=== PATIENT | male | born 1945 | race Asian ===

== ENCOUNTER 2022-05-23 07:26 | Outpatient (REF) | payer OTHER, SELFPAY ==
[2022-05-23 11:29] LABS: MANUAL DIFF FLAG NO
[2022-05-23 11:30] LABS: Appearance Urine CLEAR; Color Urine YELLOW; Glucose Urine UA NEG (NEG); Leukocyte Esterase Urine NEG (NEG); Nitrite Urine NEG (NEG); Specific Gravity - Urine >= 1.030 (1.005-1.025); Urine Blood NEG (NEG); Urine Ketones NEG (NEG); Urine Protein NEG (NEG-TRACE)
[2022-05-23 11:44] LABS: Basophils Percent Auto 0.3 % (0-2); Eosinophils Absolute Auto 0.1 X10*3/uL (0.0-0.4); Eosinophils Percent Auto 1.1 % (0-4); Hematocrit 43.9 % (42.0-52.0); Hemoglobin 14.1 g/dl (14.0-18.0); Imm Gran Abs Auto 0.02 X10*3/uL (0.00-0.03); Imm Gran Pct Auto 0.3 % (0.0-0.4); Lymphocytes Absolute Auto 1.5 X10*3/uL (1.2-4.9); Lymphocytes Percent Auto 22.8 % (20-40); Mean Corpuscular HGB Conc 32.1 g/dl (31.0-36.0); Mean Corpuscular Volume 93.4 fL (80.0-98.0); Monocytes Absolute Auto 0.5 X10*3/uL (0.1-1.2); Monocytes Percent Auto 7.5 % (2-11); Neutrophils Absolute Auto 4.4 x10*3/uL (2.0-8.3); Platelet Count 123 X10*3/uL (160-400); Red Cell Distribution Width 12.8 % (11.0-16.0); White Blood Count 6.5 X10*3/uL (4.8-10.8)
[2022-05-23 11:55] LABS: Alanine Aminotransferase 27 U/L (0-40); Albumin Level 4.3 g/dL (3.5-5.0); Alkaline Phosphatase 62 U/L (39-117); Anion Gap 12 (12-20); Aspartate Amino Transferase 45 U/L (5-37); Bilirubin Total 0.9 mg/dL (0.0-1.0); Blood Urea Nitrogen 22 mg/dL (9-16); Calcium 9.2 mg/dL (8.4-10.2); Carbon Dioxide 27 mmol/L (22-29); Chloride 103 mmol/L (96-108); Cholesterol 98 mg/dL; Estimated Glomerular Filt Rate > 60; Glucose Fasting 111 mg/dL (60-99); HDL Cholesterol 42 mg/dL; LDL Cholesterol Calculated 35 mg/dl; Potassium 4.4 mmol/L (3.3-5.1); Sodium 138 mmol/L (135-145); Total Protein 7.3 g/dL (6.5-8.0); Triglycerides 106 mg/dL
[2022-05-23 12:03] LABS: Estimated Average Glucose 137 mg/dL; Hemoglobin A1c % 6.4 %
[2022-05-23 12:22] LABS: Prostate Specific Antigen Scr 2.23 ng/mL (<0.05-4.0); TSH reflex Free T4 0.29 uIU/mL (0.32-4.0)
[2022-05-23 13:09] LABS: Creatinine Urine 122.38 mg/dL; Microalbum/Creatinine Ratio Ur 22.8 ug/mg cr
[2022-05-23 14:05] LABS: Free T4 (Free Thyroxine) 1.15 ng/dL (0.71-1.85)
== END 2022-05-23 07:27 | disposition home or self-care (01) ==
LOC: HO.HMGCLDS 07:26
PROVIDERS: Visit Provider Nurse Practitioner Family
DX: Z00.00 Encounter for general adult medical examination without abnormal findings (principal); E11.9 Type 2 diabetes mellitus without complications; R74.8 Abnormal levels of other serum enzymes; Z12.5 Encounter for screening for malignant neoplasm of prostate
CPT/HCPCS: 36415; 80053; 80061; 81003; 82043; 83036; 84153; 84439; 84443; 85025

== ENCOUNTER 2022-06-13 08:55 | Outpatient (REF) | payer OTHER, SELFPAY ==
[2022-06-13 11:10] LABS: MANUAL DIFF FLAG NO
[2022-06-13 11:45] LABS: Basophils Percent Auto 0.3 % (0-2); Eosinophils Absolute Auto 0.1 X10*3/uL (0.0-0.4); Hematocrit 45.3 % (42.0-52.0); Hemoglobin 14.5 g/dl (14.0-18.0); Imm Gran Abs Auto 0.01 X10*3/uL (0.00-0.03); Imm Gran Pct Auto 0.2 % (0.0-0.4); Lymphocytes Absolute Auto 1.4 X10*3/uL (1.2-4.9); Lymphocytes Percent Auto 22.2 % (20-40); Mean Corpuscular Hemoglobin 29.7 pg (27.0-33.0); Mean Corpuscular Volume 92.8 fL (80.0-98.0); Mean Platelet Volume 11.1 fL (9.4-12.4); Monocytes Absolute Auto 0.6 X10*3/uL (0.1-1.2); Monocytes Percent Auto 9.3 % (2-11); Neutrophils Absolute Auto 4.2 x10*3/uL (2.0-8.3); Platelet Count 130 X10*3/uL (160-400); Red Blood Count 4.88 X10*6/uL (4.60-5.80); Red Cell Distribution Width 13.2 % (11.0-16.0); White Blood Count 6.2 X10*3/uL (4.8-10.8)
[2022-06-13 11:56] LABS: HBS Num1 200.09 mIU/mL (0-7.99); HBc Num1 1.27 S/CO (0.00-0.79); HBsAGNum1 0.21 S/CO (0.00-0.99); Hepatitis A Antibody IgM 0.18 Index (0-0.79); Hepatitis B Surface Antigen Negative (Negative); ~Hepatitis A Antibody IgM Nonreactive (Nonreactive); ~Hepatitis B Surface Antibody REACTIVE (Nonreactive); ~Hepatitis C Antibody Nonreactive (Nonreactive)
[2022-06-13 11:58] LABS: TSH reflex Free T4 0.32 uIU/mL (0.32-4.0)
[2022-06-13 13:57] LABS: HBc Num3 1.31 S/CO; Hepatitis B Core Antibody Reactive (Nonreactive)
== END 2022-06-13 08:56 | disposition home or self-care (01) ==
LOC: HO.HMGCLDS 08:55
PROVIDERS: PCP Nurse Practitioner Family; Visit Provider Nurse Practitioner Family
DX: D69.6 Thrombocytopenia, unspecified (principal); R79.89 Other specified abnormal findings of blood chemistry; R74.8 Abnormal levels of other serum enzymes
CPT/HCPCS: 36415; 84443; 85025; 86704; 86706; 86709; 86803; 87340

== ENCOUNTER → 2022-07-20 08:28 | Outpatient (BNVA) | payer OTHER, SELFPAY | PROVIDERS: PCP Nurse Practitioner Family; Referring Provider Nurse Practitioner Family; Visit Provider Nurse Practitioner | DX: Z01.818 Encounter for other preprocedural examination (principal) | CPT/HCPCS: 99202 ==

== ENCOUNTER 2022-09-05 10:36 | Outpatient (REF) | payer OTHER, SELFPAY ==
[2022-09-05 13:51] LABS: MANUAL DIFF FLAG NO
[2022-09-05 13:58] LABS: Appearance Urine Clear; Color Urine Yellow; Glucose Urine UA Negative (Negative); Leukocyte Esterase Urine Negative (Negative); Nitrite Urine Negative (Negative); PH 5.5 (5.0-9.0); Specific Gravity - Urine 1.015 (1.005-1.025); Urine Blood Negative (Negative); Urine Ketones Negative (Negative); Urine Protein Negative (Neg-Trace)
[2022-09-05 13:59] LABS: Basophils Percent Auto 0.5 % (0-2); Eosinophils Absolute Auto 0.1 X10*3/uL (0.0-0.4); Eosinophils Percent Auto 0.9 % (0-4); Hematocrit 44.7 % (42.0-52.0); Hemoglobin 14.7 g/dl (14.0-18.0); Imm Gran Abs Auto 0.01 X10*3/uL (0.00-0.03); Imm Gran Pct Auto 0.2 % (0.0-0.4); Lymphocytes Absolute Auto 1.5 X10*3/uL (1.2-4.9); Lymphocytes Percent Auto 26.5 % (20-40); Mean Corpuscular HGB Conc 32.9 g/dl (31.0-36.0); Mean Corpuscular Hemoglobin 30.1 pg (27.0-33.0); Mean Corpuscular Volume 91.6 fL (80.0-98.0); Mean Platelet Volume 11.1 fL (9.4-12.4); Monocytes Absolute Auto 0.4 X10*3/uL (0.1-1.2); Monocytes Percent Auto 6.9 % (2-11); Neutrophils Absolute Auto 3.7 x10*3/uL (2.0-8.3); Platelet Count 126 X10*3/uL (160-400); Red Blood Count 4.88 X10*6/uL (4.60-5.80); Red Cell Distribution Width 13.1 % (11.0-16.0); White Blood Count 5.7 X10*3/uL (4.8-10.8)
[2022-09-05 14:08] LABS: Estimated Average Glucose 151 mg/dL; Hemoglobin A1c % 6.9 %
[2022-09-05 14:24] LABS: Alanine Aminotransferase 44 U/L (0-40); Albumin Level 4.2 g/dL (3.5-5.0); Alkaline Phosphatase 60 U/L (39-117); Anion Gap 18 (12-20); Aspartate Amino Transferase 29 U/L (5-37); Bilirubin Total 0.8 mg/dL (0.0-1.0); Blood Urea Nitrogen 15 mg/dL (9-16); Calcium 9.2 mg/dL (8.4-10.2); Carbon Dioxide 25 mmol/L (22-29); Chloride 101 mmol/L (96-108); Cholesterol 123 mg/dL; Estimated Glomerular Filt Rate > 60; Glucose Fasting 113 mg/dL (60-99); HDL Cholesterol 44 mg/dL; LDL Cholesterol Calculated 55 mg/dl; Potassium 4.5 mmol/L (3.3-5.1); Sodium 139 mmol/L (135-145); Total Protein 7.2 g/dL (6.5-8.0); Triglycerides 122 mg/dL
== END 2022-09-05 10:37 | disposition home or self-care (01) ==
LOC: HO.HMGCLDS 10:36
PROVIDERS: PCP Nurse Practitioner Family; Visit Provider Nurse Practitioner Family
DX: E11.9 Type 2 diabetes mellitus without complications (principal); I45.10 Unspecified right bundle-branch block; E78.5 Hyperlipidemia, unspecified
CPT/HCPCS: 36415; 80053; 80061; 81003; 83036; 84443; 85025

== ENCOUNTER 2022-09-13 10:02 | Outpatient (REF) | payer OTHER, SELFPAY ==
--- NOTE | ~2022-09-13 | US_ITS ---
EXAMINATION: US ABDOMEN COMPLETE CLINICAL INFORMATION: Elevated liver enzymes. COMPARISON: None TECHNIQUE: Real-time imaging of the abdominal viscera. FINDINGS: PANCREAS: Not well visualized due to bowel gas ABDOMINAL AORTA: The proximal abdominal aorta is not well visualized due to bowel gas. The mid and distal abdominal aorta are normal in caliber. INFERIOR VENA CAVA: Visualized portions are normal. LIVER: The liver is not well visualized. The liver is normal in size. The liver contour is normal. Parenchymal echogenicity is normal. No focal hepatic lesion. There is no intrahepatic biliary duct dilatation seen. GALLBLADDER: Surgically absent. COMMON BILE DUCT: Normal in caliber measuring 0.5 cm in diameter. RIGHT KIDNEY: There is a 6 mm stone in the mid to lower pole. No hydronephrosis or focal parenchymal lesions. The kidney measures 9.9 cm in maximum dimension. LEFT KIDNEY: There is a 7 x 4 x 3 mm stone in the midpole. There is a 1 cm cyst in the lower pole is slightly complex with septation. No hydronephrosis. The kidney measures 10.6 cm in maximum dimension. SPLEEN: Normal. The spleen measures 11.5 cm in maximum dimension. FREE FLUID: None. US/US abdomen complete IMPRESSION: Limited evaluation of the liver and pancreas. Bilateral renal stones. Small complex left renal cyst.
== END 2022-09-13 10:03 | disposition home or self-care (01) ==
LOC: HO.US 10:02
PROVIDERS: Visit Provider Nurse Practitioner Family
DX: R74.8 Abnormal levels of other serum enzymes (principal); I45.10 Unspecified right bundle-branch block
CPT/HCPCS: 76700

== ENCOUNTER 2022-10-25 10:57 | Day surgery (SDC) | payer OTHER, SELFPAY ==
[2022-10-22 14:19] VITALS: BMI 28.7
--- NOTE | 2022-10-24 12:20 | HO.ANESPROP2 ---
Documented by User: Lavinia Marcos NP 10/24/22 12:24 HPI - Anesthesia Eval Consult details Narrative: 76yo M for Colonoscopy PMFSH Active Problems Active Problems: All Active Problems (Updated 09/05/22 @ 10:28 by Lamin Granger, [facility]) Dyslipidemia (Acute) Pre-op examination (Acute) Elevated liver enzymes (Acute) Thrombocytopenia (Acute) Low TSH level (Acute) Screening PSA (prostate specific antigen) (Acute) Diabetes (Acute) Physical exam (Acute) RBBB (Acute) Screening for colon cancer (Acute) Past Medical History Medical History Diabetes Dyslipidemia Parkinsons Surgical History Surgical History History of appendectomy History of cholecystectomy Social History Social History Housing: House Patient Tobacco Use Status: Never used Tobacco e-Cigarette/Vaping Use: Never Used Second Hand Smoke Exposure: No Advance Directives: No Advance Directives Information Provided: Yes Current occupational status: retired Cognitive needs: No Hearing needs: No Vision needs: No Meds Allergies Allergy/AdvReac Type Severity Reaction Status Date / Time No Known Allergies Allergy Verified 09/05/22 10:58 Home Medications Medication Instructions Recorded Confirmed Last Taken Type atorvastatin 20 mg tablet 20 mg PO DAILY 05/16/22 09/05/22 Unknown History blood sugar diagnostic (OneTouch #10 ea 05/16/22 09/05/22 Unknown History Ultra Test strips) carbidopa 25 mg-levodopa 100 mg 2 tab PO TID 05/16/22 09/05/22 Unknown History tablet lancets 30 gauge (OneTouch Delica #100 ea 05/16/22 09/05/22 Unknown History Plus Lancet) lisinopril 2.5 mg tablet 2.5 mg PO DAILY 05/16/22 09/05/22 Unknown History Exam Exam Date and Time: October 24, 2022 1220 Height,Weight and Vital Signs: Height 6 ft Weight 96.162 kg Pertinent Lab Results Pertinent Lab Results: Laboratory Tests 09/05/22 09/05/22 10:42 10:42 WBC 5.7 Hgb 14.7 Hct 44.7 Plt Count 126 L Sodium 139 Potassium 4.5 Chloride 101 Carbon Dioxide 25 BUN 15 Creatinine 1.08 Assessment and Plan Assessment Anesthesia Assessment: Chart Reviewed Documented by User: Nanette Rene MD 10/25/22 12:28 [facility] Past Medical History Medical History Diabetes Dyslipidemia Parkinsons Surgical History Surgical History History of appendectomy History of cholecystectomy History of Problems with Anesthesia: No Social History Social History Housing: House Patient Tobacco Use Status: Never used Tobacco e-Cigarette/Vaping Use: Never Used Second Hand Smoke Exposure: No Advance Directives: No Advance Directives Information Provided: Yes Current occupational status: retired Cognitive needs: No Hearing needs: No Vision needs: No Meds Allergies Allergy/AdvReac Type Severity Reaction Status Date / Time No Known Allergies Allergy Verified 09/05/22 10:58 Home Medications Medication Instructions Recorded Confirmed Last Taken Type atorvastatin 20 mg tablet 20 mg PO DAILY 05/16/22 09/05/22 Unknown History blood sugar diagnostic (OneTouch #10 ea 05/16/22 09/05/22 Unknown History Ultra Test strips) carbidopa 25 mg-levodopa 100 mg 2 tab PO TID 05/16/22 09/05/22 Unknown History tablet lancets 30 gauge (OneTouch Delica #100 ea 05/16/22 09/05/22 Unknown History Plus Lancet) lisinopril 2.5 mg tablet 2.5 mg PO DAILY 05/16/22 09/05/22 Unknown History Exam Airway Mallampati Class: III TM Dist: >3cm Neck ROM: Full Denture: Upper and Lower Loose/Missing/Broken Teeth: Yes, Upper and Lower Heart: RRR Lungs: CTA Assessment and Plan Assessment Anesthesia Assessment: Anesthesia Plan Discussed Final Anesthetic Review History of Problems with Anesthesia: No ASA Class: III Final Preanesthetic Review: Meds/Allgs Chart Reviewed, Consent Obtained/Reviewed and Anes Risks/Benef Reviewed Patient Risk: Intermediate Procedure Risk: Low Anesthetic Plan Anesthetic Plan: MAC: Disposition: Standard PACU
--- NOTE | 2022-10-25 11:47 | P.HPSUR_ITS ---
Pre-Procedural Eval Section A Date of Service: 10/25/22 Section B Chief Complaint: screening Relevant Family History (Specify if Yes): No Relevant Social History: None Present Medications: see Short Stay Collaborative assessment Medical History: Significant History (Diabetes Dyslipidemia Parkinsons) History of Previous Operations: Relevant previous surgery/procedure and date(s) (History of appendectomy History of cholecystectomy) Allergies: Allergies Allergy/AdvReac Type Severity Reaction Status Date / Time No Known Allergies Allergy Verified 09/05/22 10:58 Review of Systems Sugical H&P ROS: Negative: Constitution, Cardiovascular, Respiratory, Neurolo gical, Psychiatric, Hem-Onc, Allergic/Immunologic, Gastrointestinal, Genitourinary, Musculoskeletal, Integumentary, Endocrine and Eyes/Ears/Nose/Throat Exam Surgical H&P Exam: Normal: HEENT, Normal: Heart, Normal: Lungs, Normal: Extremities, Normal: Abdomen, Normal: Skin and Normal: Neurological Plan Diagnosis/Plan: Unchanged I have reviewed the history and physical and performed a pertinent physical examination on my patient. No changes have occurred unless specified.
[2022-10-25 12:04] VITALS: BMI 26.2
[2022-10-25 12:24] LABS: Glucose, Whole Blood 117 mg/dL (60-115)
[2022-10-25 12:34] VITALS: BP 123/67; PULSE 87; RESP 18; TEMP 36.8; O2SAT 95
--- NOTE | 2022-10-25 13:24 | P.OP_ITS ---
Operative Note Operative Note Date of Service: 10/25/22 Narrative: Operative Information Procedure Description: Colonoscopy Indication: screening Anesthesia: MAC COLONOSCOPY Instrument: Olympus variable stiffness pediatric scope 190L the switched to adult scope due to looping, pressure applied Colonoscopy Monitoring: Vital signs and clinical assessment, continuous EKG monitoring, Pulse oximetry, Carbon Dioxide monitoring and blood pressure monitoring were done throughout the procedure. Colon withdrawal time was 26 minutes. Procedure: The patient was placed in the left lateral decubitis position and pre-procedure medications were administered. After a digital rectal examination of the ano-rectum, the video colonoscope was inserted into the rectum and advanced through the colon to the cecum/TI. The colonoscope was slowly withdrawn in a retrograde panoramic fashion and the colon mucosa was carefully examined including a retroflexed view of the rectum. Findings and interventions are described below. Procedure Difficulty: difficult due to looping Findings: Terminal Ileum-not intubated Cecum: 10 mm sessile polyp removed with cold snare Ascending Colon: 10-12 mm sessile poyp removed with cold snare Transverse Colon - 6-7 mm sessile polyp removed with cold snare Descending Colon:normal Sigmoid Colon: normal Rectum: Retroflexion with small internal hemorrhoids, grade I, 5-6 mm sessile polyp removed with cold forceps Anorectum - normal Colon preparation: [place] Bowel Preparation Scale Right colon; 2 Transverse colon: 2 Left colon; 1-2 (0 = Unprepared colon segment with mucosa not seen due to solid stool that cannot be cleared. 1 = Portion of mucosa of the colon segment seen, but other areas of the colon segment not well seen due to staining, residual stool and/or opaque liquid. 2 = Minor amount of residual staining, small fragments of stool and/or opaque liquid, but mucosa of colon segment seen well. 3 = Entire mucosa of colon segment seen well with no residual staining, small fragments of stool or opaque liquid) Impression and Post Procedure Diagnosis: polyps internal hemorrhoids Plan: High fiber diet leaflet Avoid straining at stool, epsom salts and sitz bath, anusol supps or cream Repeat Colonoscopy in 3 years due to fair prep on left or earlier if clinically indicated Above findings were reviewed with the patient and relevant handouts were provided if indicated.
[2022-10-25 13:34] VITALS: BP 84/48; PULSE 85; RESP 16; TEMP 36.6; O2SAT 96
[2022-10-25 13:49] VITALS: BP 103/68; PULSE 85; RESP 18; TEMP 36.1; O2SAT 99
== END 2022-10-25 14:31 | disposition home or self-care (01) ==
PROVIDERS: PCP Nurse Practitioner Family; Visit Provider Internal Medicine Gastroenterology
PROC: 0DJD8ZZ Inspection of Lower Intestinal Tract, Via Natural or Artificial Opening Endoscopic (ICD-10-PCS; CPT 45378; principal; 2022-10-25 12:50)
DX: Z12.11 Encounter for screening for malignant neoplasm of colon (principal); K51.40 Inflammatory polyps of colon without complications; K62.1 Rectal polyp; K64.0 First degree hemorrhoids; E11.9 Type 2 diabetes mellitus without complications; G20 Parkinson's disease; E78.00 Pure hypercholesterolemia, unspecified; D69.6 Thrombocytopenia, unspecified; I45.10 Unspecified right bundle-branch block; R74.8 Abnormal levels of other serum enzymes; Z79.899 Other long term (current) drug therapy; Z90.49 Acquired absence of other specified parts of digestive tract
CPT/HCPCS: 45385; 45380; 82947; 88305